=== PATIENT | female | born 1945 | race Caucasian/White ===

== ENCOUNTER 2022-03-27 16:11 | Outpatient (REF) | payer MEDICARE, BC, SELFPAY ==
[2022-03-27 16:31] LABS: Appearance Urine Cloudy (Clear); Bilirubin Urine Negative (Negative); Blood Urine 3+ (Negative); Color Urine Yellow (Yellow); Glucose Urine Negative (Negative); Ketones Urine Negative (Negative); Leukocyte Esterase Urine 3+ (Negative); Nitrite Urine Negative (Negative); Protein Urine Negative (Negative); Specific Gravity Urine 1.025 (1.000-1.030)
[2022-03-27 16:46] LABS: Bacteria Urine Moderate; Squamous Epithelial Cell Urine Moderate (None-Few); WBC Urine 25-50 (0-5)
== END 2022-03-27 16:12 | disposition home or self-care (01) ==
LOC: NPINS 16:11
PROVIDERS: Visit Provider Nurse Practitioner Gerontology
DX: R41.0 Disorientation, unspecified (principal); R82.90 Unspecified abnormal findings in urine
CPT/HCPCS: 81003; 81015; 87086

== ENCOUNTER 2023-03-20 13:50 | Outpatient (CLI) | payer MEDICARE, BC, SELFPAY | END 2023-03-20 13:51 | disposition home or self-care (01) | LOC: AMB 03-21 07:14 | PROVIDERS: Visit Provider Emergency Medicine | DX: R41.82 Altered mental status, unspecified (principal) | CPT/HCPCS: A0425; A0427 ==

== ENCOUNTER 2023-03-20 14:35 | Emergency (ER) | payer MEDICARE, BC, SELFPAY ==
[2023-03-20 14:49] VITALS: BP 112/56; PULSE 58; RESP 14; TEMP 35.9; O2SAT 89; BMI 34.3
--- NOTE | 2023-03-20 15:18 | ED.GENADULT ---
HPI - General Adult General Chief complaint: Altered Mental Status Stated complaint: Hypotensive Time Seen by Provider: 03/20/23 15:12 History of Present Illness HPI narrative: This 77-year-old female resides in a memory care facility. She was noted to have decreased responses this morning and at that time blood pressure was a systolic value in the 80s. There was also report of hypoxia. The patient arrives here with blood pressure at 112/56. Her oximetry was checked at 89% initially. At the time of my assessment she was at 93-94% on room air. She has significant dementia and is a poor historian. Related Data Previous Rx's Medication Instructions Recorded cephalexin 500 mg capsule 500 mg PO TID 7 days #21 caps 03/20/23 Review of Systems Status of ROS: Reports: unobtainable due to mental status PFSH PFS Social History Smoking Status: Former smoker Do you use any of these nicotine containing products: None Second hand tobacco smoke exposure: No How often do you have a drink containing alcohol: never AUDIT-C Alcohol total score: 0 Non-prescribed substance use: denies use service: No Exam Narrative: Exam Narrative: Constitutional: Well-developed, well-nourished, no acute distress. HEENT: Normocephalic, atraumatic. Neck: Normal range of motion. Nontender. Supple. Heart: Regular. No murmurs. Normal rate. Intact distal pulses. Lungs: Clear to auscultation. No chest discomfort. No wheezes, rhonchi, or rales. Abdomen: Normal bowel sounds. Nontender. No rebound tenderness. Genitalia: Deferred. Back: No midline tenderness. Normal range of motion. Extremities: Normal range of motion. No injury. No pedal edema Skin: Intact. No rash. Warm. No erythema or pallor. Neurologic: No altered sensation. No weakness. Alert and oriented. Psychiatric: No suicidality. No anxiety or depression. No insomnia. Nursing notes and vitals signs are reviewed. Const: Vital Signs, click to edit/add: Vital Signs - 24 hr 03/20/23 14:49 03/20/23 17:23 03/20/23 18:27 Temperature 96.6 F L 98.4 F 98.8 F Pulse Rate [Left R adial] 58 L 60 65 Respiratory Rate 14 18 18 Blood Pressure [Le ft Upper Arm] 112/56 L 110/74 105/64 Pulse Oximetry 89 95 94 Oxygen Delivery Me thod Room Air Room Air Room Air Course Vital Signs Vital signs: Initial Vital Signs Temperature 96.6 F L 03/20/23 14:49 Temperature Source Temporal Artery Scan 03/20/23 14:49 Pulse Rate 58 L 03/20/23 14:49 Pulse Rhythm Regular 03/20/23 14:49 Pulse Strength 3+ Normal 03/20/23 14:49 Respiratory Rate 14 03/20/23 14:49 Blood Pressure 112/56 L 03/20/23 14:49 Blood Pressure Mean 74 03/20/23 14:49 Blood Pressure Position Supine 03/20/23 14:49 Pulse Oximetry 89 03/20/23 14:49 Oxygen Delivery Method Room Air 03/20/23 14:49 Vital Signs Temperature 96.6 F L 03/20/23 14:49 Pulse Rate 58 L 03/20/23 14:49 Respiratory Rate 14 03/20/23 14:49 Blood Pressure 112/56 L 03/20/23 14:49 Pulse Oximetry 89 03/20/23 14:49 Oxygen Delivery Method Room Air 03/20/23 14:49 Temperature 98.8 F 03/20/23 18:27 Pulse Rate 65 03/20/23 18:27 Respiratory Rate 18 03/20/23 18:27 Blood Pressure 105/64 03/20/23 18:27 Pulse Oximetry 94 03/20/23 18:27 Oxygen Delivery Method Room Air 03/20/23 18:27 Medical Decision Making MDM Narrative Medical decision making narrative: This patient is in a memory care facility and comes in today because of above-stated symptoms. An IV is established where she received a L of normal saline and labs are acquired. These returned with mildly elevated white blood cell count but otherwise reassuring findings. Her urinalysis shows obvious sign of urinary tract infection. The patient is maintaining sufficient vital signs and does not appear to be in any acute distress. She did receive an IV dose of Rocephin 1 g and is okay to be discharged back to her memory care facility. A prescription for Keflex is provided. Lab Data Labs: Lab Results 03/20/23 03/20/23 Range/Units 15:43 17:23 WBC 14.61 H (4.50-11.00) K/uL RBC 4.77 (4.00-5.20) m/uL Hgb 15.6 (12.0-16.0) gm/dL Hct 46.2 (33.0-51.0) % MCV 97 (80-100) fL MCH 33 (26-34) pg MCHC 34 (32-36) gm/dL RDW Coeff of Eulogio 12.5 (11.5-15.5) % Plt Count 222 (140-440) K/uL Neut % (Auto) 82.5 H (42.0-72.0) % Lymph % (Auto) 9.9 L (20-44) % [place] % (Auto) 7.0 (0.0-11.0) % Eos % (Auto) 0.3 (0.0-7.0) % Baso % (Auto) 0.1 (0.0-3.0) % Neut # (Auto) 12.10 H (1.7-7.0) K/uL Lymph # (Auto) 1.40 (0.90-2.90) K/uL [place] # (Auto) 1.00 H (0.00-0.90) K/UL Eos # (Auto) 0.00 (0.00-0.50) K/uL Baso # (Auto) 0.00 (0.00-0.30) K/uL Abs Immat Gran (auto) 0.00 (0.00-0.30) K/uL Imm/Tot Granulo (auto) 0.2 % Sodium 141 (135-149) mmol/L Potassium 3.5 L (3.6-5.1) mmol/L Chloride 105 (96-114) mmol/L Carbon Dioxide 24 (20-32) mmol/L Anion Gap 12 (7-15) mEq/L BUN 28 (7-30) mg/dL Creatinine 0.6 (0.5-1.5) mg/dL Estimated Creat Clear 40.68 Estimated GFR 92 ml/min Glucose 121 H (60-115) mg/dL Calcium 9.1 (8.4-10.6) mg/dL Urine Color Dark yellow (Yellow) Urine Appearance Cloudy A (Clear) Urine pH 6.0 (5.0-8.5) Ur Specific [place] 1.015 (1.000-1.030) Urine Protein Trace A (Negative) Urine Glucose (UA) Negative (Negative) Urine Ketones Negative (Negative) Urine Blood 2+ A (Negative) Urine Nitrite Negative (Negative) Urine Bilirubin 1+ A (Negative) Urine Urobilinogen 0.2 (0.2-1.0) Ur Leukocyte Esterase 3+ A (Negative) Urine RBC 5-10 A (0-2) Urine WBC >100 A (0-5) Ur Squamous Epith Cells Moderate A (None-Few) Urine Bacteria Many A (None) ECG Data Attestation: I personally reviewed and interpreted this ECG as follows: Interpretation: Sinus bradycardia, rate 56 beats per minute. There are no specific ST or T-wave abnormalities. Discharge Plan Discharge Clinical Impression: Urinary tract infection Patient Disposition: Home w/ Parent or Adult Condition: Stable Additional Instructions: Take medication as prescribed. Follow up with MD or return if not improving or worsening. Prescriptions: New cephalexin 500 mg capsule 500 mg PO TID 7 Days Qty: 21 0RF Follow Up/Referrals: Provider,Not a Local [Primary Care Provider] - Stand Alone Forms: [employer] Info Instructions
[2023-03-20 15:53] LABS: Basophils Percent Auto 0.1 % (0.0-3.0); Eosinophils Percent Auto 0.3 % (0.0-7.0); Hematocrit 46.2 % (33.0-51.0); Hemoglobin* 15.6 gm/dL (12.0-16.0); Immature Granulocytes Pct Auto 0.2 %; Lymphocytes Percent Auto 9.9 % (20-44); Mean Corpuscular HGB Conc 34 gm/dL (32-36); Mean Corpuscular Hemoglobin 33 pg (26-34); Mean Corpuscular Volume 97 fL (80-100); Neutrophils Percent Auto 82.5 % (42.0-72.0); Platelet Count* 222 K/uL (140-440); RDW Coefficient of Variation % 12.5 % (11.5-15.5); Red Blood Count 4.77 m/uL (4.00-5.20); White Blood Count* 14.61 K/uL (4.50-11.00)
[2023-03-20 15:54] LABS: Slide Review Reflex No
[2023-03-20 16:57] LABS: Chloride* 105 mmol/L (96-114); Potassium* 3.5 mmol/L (3.6-5.1); Sodium* 141 mmol/L (135-149)
[2023-03-20 16:59] LABS: Creatinine* 0.6 mg/dL (0.5-1.5); Est. Creatinine Clearance* 40.68; Estimated Glomerular Filt Rate 92 ml/min
[2023-03-20 17:00] LABS: Anion Gap 12 mEq/L (7-15); Blood Urea Nitrogen* 28 mg/dL (7-30); Calcium* 9.1 mg/dL (8.4-10.6); Carbon Dioxide* 24 mmol/L (20-32); Glucose* 121 mg/dL (60-115)
[2023-03-20 17:23] VITALS: BP 110/74; PULSE 60; RESP 18; TEMP 36.9; O2SAT 95
--- NOTE | 2023-03-20 17:26 | PC.NURSE ---
Pt had small BM, pads changed, quick cath urine obtained.
[2023-03-20 17:32] LABS: Appearance Urine Cloudy (Clear); Bilirubin Urine 1+ (Negative); Blood Urine 2+ (Negative); Color Urine Dark yellow (Yellow); Glucose Urine Negative (Negative); Ketones Urine Negative (Negative); Specific Gravity Urine 1.015 (1.000-1.030)
[2023-03-20 17:33] LABS: Leukocyte Esterase Urine 3+ (Negative); Nitrite Urine Negative (Negative); Protein Urine Trace (Negative); Urobilinogen Urine 0.2 (0.2-1.0)
[2023-03-20 17:44] LABS: Bacteria Urine Many; Squamous Epithelial Cell Urine Moderate (None-Few); WBC Urine >100 (0-5)
[2023-03-20 18:27] VITALS: BP 105/64; PULSE 65; RESP 18; TEMP 37.1; O2SAT 94
--- NOTE | 2023-03-20 19:38 | PC.NURSE ---
Transport here to take pt back to memory care. Spoke with RNGuerrero at [facility], discharge paperwork faxed per request. Pt's family to picker prescriptions for pt and bring to memory care.
== END 2023-03-20 19:40 | disposition home or self-care (01) ==
PROVIDERS: Emergency Provider Emergency Medicine Emergency Medical Services
DX: N39.0 Urinary tract infection, site not specified (principal)
CPT/HCPCS: 36415; 80048; 81001; 84484; 85025; 87086; 87186; 93005; 96374; 99284

== ENCOUNTER 2023-03-20 19:29 | Outpatient (CLI) | payer MEDICARE, BC, SELFPAY | END 2023-03-20 19:30 | disposition home or self-care (01) | LOC: AMB 03-21 07:48 | PROVIDERS: Visit Provider Family Medicine | DX: N39.0 Urinary tract infection, site not specified (principal); F03.90 Unspecified dementia, unspecified severity, without behavioral disturbance, psychotic disturbance, mood disturbance, and anxiety | CPT/HCPCS: A0425; A0428 ==

== ENCOUNTER 2023-04-16 12:59 | Outpatient (REF) | payer MEDICARE, BC, SELFPAY ==
[2023-04-16 14:01] LABS: Appearance Urine Cloudy (Clear); Bilirubin Urine Negative (Negative); Blood Urine Trace-intact (Negative); Color Urine Dark yellow (Yellow); Glucose Urine Negative (Negative); Ketones Urine Negative (Negative); Leukocyte Esterase Urine 3+ (Negative); Nitrite Urine Negative (Negative); Protein Urine Negative (Negative)
[2023-04-16 14:16] LABS: WBC Urine 25-50 (0-5)
[2023-04-16 14:17] LABS: Bacteria Urine Moderate; Squamous Epithelial Cell Urine Many (None-Few)
== END 2023-04-16 13:00 | disposition home or self-care (01) ==
LOC: NPINS 12:59
PROVIDERS: Visit Provider Nurse Practitioner Gerontology
DX: N39.0 Urinary tract infection, site not specified (principal)
CPT/HCPCS: 81001; 87086; 87186

== ENCOUNTER 2023-06-10 16:32 | Outpatient (REF) | payer MEDICARE, BC, SELFPAY ==
[2023-06-10 19:01] LABS: Appearance Urine Cloudy (Clear); Bilirubin Urine Negative (Negative); Blood Urine Trace-intact (Negative); Color Urine Yellow (Yellow); Glucose Urine Negative (Negative); Ketones Urine Negative (Negative); Leukocyte Esterase Urine 3+ (Negative); Nitrite Urine Positive (Negative); Protein Urine Negative (Negative); Urobilinogen Urine 0.2 (0.2-1.0); pH Urine 6.5 (5.0-8.5)
[2023-06-10 19:08] LABS: Bacteria Urine Few; RBC Urine 0-2 (0-2); Squamous Epithelial Cell Urine Few (None-Few); WBC Urine 25-50 (0-5)
== END 2023-06-10 16:33 | disposition home or self-care (01) ==
LOC: NPINS 16:32
PROVIDERS: Visit Provider Internal Medicine Gastroenterology
DX: R53.1 Weakness (principal); R41.0 Disorientation, unspecified
CPT/HCPCS: 81001; 87086; 87186

== ENCOUNTER 2023-10-11 15:44 | Outpatient (CLI) | payer MEDICARE, BC, SELFPAY | END 2023-10-11 15:45 | disposition home or self-care (01) | LOC: AMB 10-17 23:33 | PROVIDERS: Visit Provider Family Medicine | DX: R53.1 Weakness (principal) ==

== ENCOUNTER 2024-01-04 16:31 | Outpatient (REF) | payer MEDICARE, BC, SELFPAY ==
[2024-01-04 17:43] LABS: Appearance Urine Clear (Clear); Bilirubin Urine Negative (Negative); Blood Urine Negative (Negative); Color Urine Yellow (Yellow); Glucose Urine Negative (Negative); Ketones Urine Negative (Negative); Leukocyte Esterase Urine 1+ (Negative); Nitrite Urine Negative (Negative); Protein Urine Negative (Negative); Specific Gravity Urine 1.025 (1.000-1.030); Urobilinogen Urine 0.2 (0.2-1.0); pH Urine 5.5 (5.0-8.5)
[2024-01-04 18:00] LABS: Bacteria Urine Many; RBC Urine 0-2 (0-2); Squamous Epithelial Cell Urine Few (None-Few)
== END 2024-01-04 16:32 | disposition home or self-care (01) ==
LOC: NPINS 16:31
PROVIDERS: Visit Provider Family Medicine
DX: Z87.440 Personal history of urinary (tract) infections (principal); R82.998 Other abnormal findings in urine; R82.71 Bacteriuria; R53.1 Weakness; R41.0 Disorientation, unspecified
CPT/HCPCS: 81001; 81003; 87086; 87186

== ENCOUNTER 2024-03-14 08:29 | Outpatient (CLI) | payer MEDICARE, BC, SELFPAY | END 2024-03-14 08:30 | disposition home or self-care (01) | LOC: AMB 03-22 13:27 | PROVIDERS: Visit Provider Student in an Organized Health Care Education/Training Program | DX: S81.812A Laceration without foreign body, left lower leg, initial encounter (principal); F03.90 Unspecified dementia, unspecified severity, without behavioral disturbance, psychotic disturbance, mood disturbance, and anxiety; W18.30XA Fall on same level, unspecified, initial encounter; Y92.099 Unspecified place in other non-institutional residence as the place of occurrence of the external cause | CPT/HCPCS: A0425; A0427 ==

== ENCOUNTER 2024-03-14 09:04 | Emergency (ER) | payer MEDICARE, BC, SELFPAY ==
[2024-03-14 09:14] VITALS: BP 101/75; PULSE 125; RESP 18; TEMP 36.4; O2SAT 94; BMI 30.5
--- NOTE | 2024-03-14 09:49 | ED.NURSE ---
Wound on back of head cleansed with wound cleanser, pt tolerated well.
--- NOTE | 2024-03-14 10:24 | ED_ITS ---
HPI - Wound/Laceration General Date Seen: 03/14/24 Chief Complaint: Laceration/Wound Stated Complaint: Fall Time Seen by Provider: 03/14/24 09:31 Source: family Mode of arrival: EMS Limitations: no limitations and altered mental status History of Present Illness HPI narrative: Patient is a 78-year-old female with history of dementia presenting to the emergency department with her son. She comes from the [facility] when the patient fell. Staff witnessed the fall. They note the patient is walking with the limp since yesterday and unsure if she hurt the leg. Blood sugar via EMS was 138. She is not on any blood thinners. Is alert and her son states she is acting normally. She does have a laceration to the back of her head. She is unable answer questions appropriately due to her dementia. We do have her POLST which states she is comfort cares only. She filled this out in 2019. No other concerns noted by the son. Related Data Home Medications ?Medication ?Instructions ?Recorded ?Confirmed acetaminophen 500 mg tablet mg PO 03/14/24 furosemide 40 mg tablet 40 mg PO DAILY edema 03/14/24 03/14/24 hydrocortisone 1 % topical cream applic topical BID 03/14/24 lisinopril 20 mg tablet 20 mg PO QPM blood pressure 03/14/24 03/14/24 nystatin 100,000 unit/gram topical topical BID 03/14/24 powder sennosides 8.6 mg tablet (senna) 8.6 mg PO BID PRN constipation 03/14/24 03/14/24 sertraline 50 mg tablet 50 mg PO DAILY anxiety 03/14/24 03/14/24 simvastatin 20 mg tablet 20 mg PO QPM hyperlipidemia 03/14/24 03/14/24 Previous Rx's ?Medication ?Instructions ?Recorded cephalexin 500 mg capsule 500 mg PO TID 7 days #21 caps 03/20/23 Allergies Allergy/AdvReac Type Severity Reaction Status Date / Time No Known Drug Allergies Allergy Verified 03/14/24 09:21 Review of Systems Status of ROS: Reports: unobtainable due to mental status PFS PFS Social History Smoking Status: Former smoker Do you use any of these nicotine containing products: None Second hand tobacco smoke exposure: No How often do you have a drink containing alcohol: never AUDIT-C Alcohol total score: 0 Non-prescribed substance use: denies use service: No Exam Narrative: Exam Narrative: Const: Well-nourished, Well-developed, in no distress Eyes: PERRL, no conjunctival injection, and symmetrical lids HENT: Atraumatic external nose and ears. Moist mucous membranes. 1 cm laceration noted to back of head Neck: Symmetric, trachea midline, No thyromegaly. CVS: RRR, No murmurs or gallops. Peripheral pulses 2+ and equal in all extremities RESP: Unlabored respiratory effort. Clear to auscultation bilaterally. GI: Nontender/Nondistended, No rebound or guarding. MSK:Extremities w/o deformity, Normal Active ROM, no tenderness noted to extremities Skin: Warm, Dry. No rashes or lesions. Neuro: Normal Muscle tone, No focal neurological deficits. Psych: Awake, Alert. Appropriate mood and affect. Const: Vital Signs, click to edit/add: Vital Signs - 24 hr 03/14/24 09:14 Temperature 97.6 F Pulse Rate [Pulse Oximeter] 912 H Respiratory Rate 18 Blood Pressure [Ri ght Upper Arm] 101/75 Pulse Oximetry 94 Oxygen Delivery Me thod Room Air Course Vital Signs Vital signs: Initial Vital Signs Temperature 97.6 F 03/14/24 09:14 Temperature Source Temporal Artery Scan 03/14/24 09:14 Pulse Rate 912 H 03/14/24 09:14 Respiratory Rate 18 03/14/24 09:14 Blood Pressure 101/75 03/14/24 09:14 Blood Pressure Mean 83 03/14/24 09:14 Blood Pressure Position Sitting 03/14/24 09:14 Pulse Oximetry 94 03/14/24 09:14 Oxygen Delivery Method Room Air 03/14/24 09:14 Vital Signs Temperature 97.6 F 03/14/24 09:14 Pulse Rate 912 H 03/14/24 09:14 Respiratory Rate 18 03/14/24 09:14 Blood Pressure 101/75 03/14/24 09:14 Pulse Oximetry 94 03/14/24 09:14 Oxygen Delivery Method Room Air 03/14/24 09:14 Temperature 97.6 F 03/14/24 09:14 Pulse Rate 912 H 03/14/24 09:14 Respiratory Rate 18 03/14/24 09:14 Blood Pressure 101/75 03/14/24 09:14 Pulse Oximetry 94 03/14/24 09:14 Oxygen Delivery Method Room Air 03/14/24 09:14 MDM - Wound/Laceration MDM Narrative Medical decision making narrative: Patient is a 78-year-old female presenting to the emergency department after a fall. She had lower blood pressures but she is comfort cares only and due to that IV fluids and other treatment is not indicated. Imaging is not indicated due to her comfort cares as no further treatment would be done. I will use skin glue though to close her wound. I used skin glue as it does not need to be removed later and will be more tolerable for the patient than trying to numb up the area to place sharonda. Am unsure what is causing her limbs leg pain. She has no pain to the joints or thigh with some mild pain noted to the cobb. There is no swelling no clear signs of a DVT at this time. Patient will be disch arged. Family is agreeable to this plan Discharge Plan Discharge Clinical Impression: Laceration Patient Disposition: Home w/ Parent or Adult Condition: Stable Instructions: Skin Adhesive Care (ED) Additional Instructions: Do not use topical antibiotics over the skin glue as it will dissolve it is more rapidly. Recommend against pulling or scratching at the area. Skin glue will fall off on its own. Return for new or worsening symptoms. Prescriptions: No Action cephalexin 500 mg capsule 500 mg PO TID 7 Days Qty: 21 0RF furosemide 40 mg tablet 40 mg PO DAILY sennosides [senna] 8.6 mg tablet 8.6 mg PO BID PRN (Reason: constipation) lisinopril 20 mg tablet 20 mg PO QPM acetaminophen 500 mg tablet PO hydrocortisone 1 % cream topical BID simvastatin 20 mg tablet 20 mg PO QPM nystatin 100,000 unit/gram powder topical BID sertraline 50 mg tablet 50 mg PO DAILY Follow Up/Referrals: Provider,Not a Local [Primary Care Provider] - Stand Alone Forms: [employer] Info Instructions
--- NOTE | 2024-03-14 11:00 | ED.NURSE ---
Report given to nurse at [facility].
== END 2024-03-14 11:19 | disposition home or self-care (01) ==
PROVIDERS: Emergency Provider Student in an Organized Health Care Education/Training Program
DX: S01.01XA Laceration without foreign body of scalp, initial encounter (principal); W18.30XA Fall on same level, unspecified, initial encounter
CPT/HCPCS: 12001; 99282; 99283

== ENCOUNTER 2024-03-14 11:22 | Outpatient (CLI) | payer MEDICARE, BC, SELFPAY | END 2024-03-14 11:23 | disposition home or self-care (01) | LOC: AMB 03-15 23:45 | PROVIDERS: Visit Provider Emergency Medicine | DX: F03.90 Unspecified dementia, unspecified severity, without behavioral disturbance, psychotic disturbance, mood disturbance, and anxiety (principal) | CPT/HCPCS: A0425; A0428 ==